=== PATIENT | male | born 1965 | race African-American/Black ===

== ENCOUNTER 2017-11-02 23:33 | Emergency (ER) | payer MEDICAID ==
[~2017-11-02] VITALS: Ht 175.3 cm; Wt 89.8 kg
[2017-11-02 23:45] VITALS: BP 150/90
[2017-11-02] MEDS ORDERED: QUEtiapine 200mg tab ORAL STA (23:49)
[2017-11-03] MEDS ORDERED: TraZODone 100mg tab ORAL ONE
[2017-11-03] MEDS ORDERED: TraZODone 50mg tab ONE (00:01)
[2017-11-03 00:55] LABS: APPEARANCE,URINE CLEAR; BILIRUBIN, URINE NEGATIVE (NEGATIVE); COLOR,URINE PALE YELLOW; GLUCOSE, URINE (UA) NEGATIVE (NEGATIVE); KETONES,URINE NEGATIVE (NEGATIVE); LEUKOCYTE ESTERASE ,URINE NEGATIVE (NEGATIVE); NITRITE,URINE NEGATIVE (NEGATIVE); PH,URINE 6.5 (4.5-8.0); PROTEIN,URINE NEGATIVE (NEGATIVE); UROBILINOGEN,URINE NORMAL MG/DL (0.0-1.0)
[2017-11-03 00:59] LABS: BASOPHILS % (AUTO) 0.9 % (0.0-2.0); EOSINOPHILS % (AUTO) 1.1 % (0.0-3.0); HEMATOCRIT 41.4 % (42.0-52.0); HEMOGLOBIN 13.5 G/DL (14.2-18.0); LYMPHOCYTES % (AUTO) 33.3 % (20.0-45.0); MEAN CORPUSCULAR VOLUME 89 FL (80-99); MONOCYTES % (AUTO) 10.9 % (1.0-10.0); NEUTROPHILS % (AUTO) 53.8 % (45.0-75.0); PLATELET COUNT 217 K/UL (150-450); RED BLOOD COUNT 4.68 M/UL (4.70-6.10); RED CELL DISTRIBUTION WIDTH 12.3 % (11.6-14.8); WHITE BLOOD COUNT 7.9 K/UL (4.8-10.8)
[2017-11-03 01:10] LABS: ANION GAP 7 mmol/L (5-15); BLOOD UREA NITROGEN 11 mg/dL (7-18); CALCIUM 8.6 MG/DL (8.5-10.1); CARBON DIOXIDE 28 MMOL/L (21-32); CHLORIDE 104 MMOL/L (98-107); CREATININE 0.8 MG/DL (0.55-1.30); POTASSIUM 3.9 MMOL/L (3.5-5.1); SODIUM 139 MMOL/L (136-145)
[2017-11-03 01:14] LABS: ALANINE AMINOTRANSFERASE 23 U/L (12-78); ALBUMIN 3.4 G/DL (3.4-5.0); ALKALINE PHOSPHATASE 80 U/L (46-116); ASPARTATE AMINO TRANSFERASE 11 U/L (15-37); BILIRUBIN,TOTAL 0.3 MG/DL (0.2-1.0)
--- NOTE | 2017-11-03 04:08 | Emergency Room Report ---
History of Present Illness General Chief Complaint: Behavioral Complaint Source: Patient, EMS Present Illness HPI Patient brought in by EMS saying that he is hearing voices and possibly feeling suicidal. He's not been taking his medications. He supposed be taking Seroquel and trazodone. He does not have a plan. He didn't tell EMS that he was suicidal. Long history of schizophrenia. The patient denies doing drugs or alcohol. No fever, chills, NVD, dysuria, joint pain, headache, rashes. Allergies: Coded Allergies: CHLORPROMAZINE (Verified Allergy, Unknown, 11/02/17) RISPERIDONE (Verified Allergy, Unknown, 11/02/17) Patient History Past Medical History: see triage record Social History: Reports: smoking; Denies: alcohol use, drug use Social History Narrative on streets Reviewed Nursing Documentation: PMH: Agreed; PSxH: Agreed Nursing Documentation-PMH History Of Psychiatric Problem: Yes - BIPOLAR,SCHIZOPHRENIA Review of Systems All Other Systems: negative except mentioned in HPI Physical Exam Vital Signs Date Time Temp Pulse Resp B/P (MAP) Pulse Ox O2 Delivery O2 Flow Rate FiO2 11/02/17 23:29 98.3 115 16 142/88 96 Room Air 98.2 Sp02 EP Interpretation: reviewed, normal General Appearance: well appearing, no apparent distress, GCS 15 Head: normocephalic, atraumatic Eyes: bilateral eye normal inspection, bilateral eye PERRL ENT: moist mucus membranes Neck: supple Respiratory: lungs clear, normal breath sounds Cardiovascular #1: regular rate, rhythm Cardiovascular #2: 2+ radial (R) Gastrointestinal: normal inspection, normal bowel sounds, non tender, no mass, non-distended Musculoskeletal: back normal, gait/station normal, normal range of motion Neurologic: alert, motor strength/tone normal, DTRs symmetric, sensory intact, speech normal, oriented - X2 Psychiatric: no suicidal/homicidal ideation, other - pressured and delusional Skin: normal inspection, warm/dry Medical Decision Making Diagnostic Impression: Primary Impression: Behavioral disorder Additional Impressions: Schizophrenia Qualified Codes: F20.9 - Schizophrenia, unspecified Non compliance w medication regimen ER Course Patient with history of schizophrenia presents with hearing voices and noncompliance. Differential includes exacerbation of schizophrenia, electrolyte imbalance, drug use and noncompliance amongst others. He'll be evaluated with EKG and labs. His lungs are clear and no imaging is indicated at the moment. He will be given doses of his antipsychotic medications and reevaluated. Labs are significant for negative tox screen and alcohol. The rest are unremarkable. The patient is sleeping calmly after getting his medication. He still states that he feels unstable and wants to be hospitalized. He's medically stable at this time however may benefit from psychiatric evaluation in the morning. Patient now no SI or HI and wants to go. States he will find a place to stay. Feels stable for discharge. Has outpatient psychiatric care. Laboratory Tests Test 11/02/17 00:30 White Blood Count 7.9 K/UL (4.8-10.8) Red Blood Count 4.68 M/UL (4.70-6.10) L Hemoglobin 13.5 G/DL (14.2-18.0) L Hematocrit 41.4 % (42.0-52.0) L Mean Corpuscular Volume 89 FL (80-99) Mean Corpuscular Hemoglobin 29.0 PG (27.0-31.0) Mean Corpuscular Hemoglobin Concent 32.7 G/DL (32.0-36.0) Red Cell Distribution Width 12.3 % (11.6-14.8) Platelet Count 217 K/UL (150-450) Mean Platelet Volume 6.6 FL (6.5-10.1) Neutrophils (%) (Auto) 53.8 % (45.0-75.0) Lymphocytes (%) (Auto) 33.3 % (20.0-45.0) Monocytes (%) (Auto) 10.9 % (1.0-10.0) H Eosinophils (%) (Auto) 1.1 % (0.0-3.0) Basophils (%) (Auto) 0.9 % (0.0-2.0) Urine Color Pale yellow Urine Appearance Clear Urine pH 6.5 (4.5-8.0) Urine Specific [place] 1.010 (1.005-1.035) Urine Protein Negative (NEGATIVE) Urine Glucose (UA) Negative (NEGATIVE) Urine Ketones Negative (NEGATIVE) Urine Blood Negative (NEGATIVE) Urine Nitrite Negative (NEGATIVE) Urine Bilirubin Negative (NEGATIVE) Urine Urobilinogen Normal MG/DL (0.0-1.0) Urine Leukocyte Esterase Negative (NEGATIVE) Sodium Level 139 MMOL/L (136-145) Potassium Level 3.9 MMOL/L (3.5-5.1) Chloride Level 104 MMOL/L (98-107) Carbon Dioxide Level 28 MMOL/L (21-32) Anion Gap 7 mmol/L (5-15) Blood Urea Nitrogen 11 mg/dL (7-18) Creatinine 0.8 MG/DL (0.55-1.30) Estimate Glomerular Filtration Rate > 60 mL/min (>60) Glucose Level 115 MG/DL (74-106) H Calcium Level 8.6 MG/DL (8.5-10.1) Total Bilirubin 0.3 MG/DL (0.2-1.0) Aspartate Amino Transferase (AST) 11 U/L (15-37) L Alanine Aminotransferase (ALT) 23 U/L (12-78) Alkaline Phosphatase 80 U/L (46-116) Troponin I 0.009 ng/mL (0.000-0.056) Total Protein 6.8 G/DL (6.4-8.2) Albumin 3.4 G/DL (3.4-5.0) Globulin 3.4 g/dL Albumin/Globulin Ratio 1.0 (1.0-2.7) Salicylates Level 2.5 ug/mL (2.8-20) L Urine Opiates Screen Negative (NEGATIVE) Acetaminophen Level < 2 MCG/ML (10-30) L Urine Barbiturates Screen Negative (NEGATIVE) Phencyclidine (PCP) Screen Negative (NEGATIVE) Urine Amphetamines Screen Negative (NEGATIVE) Urine Benzodiazepines Screen Negative (NEGATIVE) Urine Cocaine Screen Negative (NEGATIVE) Urine Marijuana (THC) Screen Negative (NEGATIVE) Serum Alcohol < 3 mg/dL EKG Diagnostic Results Rate: normal Rhythm: NSR ST Segments: no acute changes - LVH Rhythm Strip Diag. Results EP Interpretation: yes Rhythm: NSR, no PVC's, no ectopy Last Vital Signs Date Time Temp Pulse Resp B/P (MAP) Pulse Ox O2 Delivery O2 Flow Rate FiO2 11/03/17 09:44 98.1 90 15 138/78 99 Room Air 97.8 Status: improved Disposition: HOME, SELF-CARE Condition: Improved Scripts Trazodone Hcl* (DESYREL*) 100 Mg Tablet 100 MG ORAL BEDTIME, #20 TAB Prov: George Rosenthal M.D. 11/03/17 Quetiapine Fumarate* (SEROQUEL*) 200 Mg Tablet 200 MG ORAL HS, #20 TAB Prov: George Rosenthal M.D. 11/03/17 Referrals: NON PHYSICIAN (PCP) George Rosenthal M.D. Nov 03, 2017 04:08
[2017-11-03 06:00] VITALS: BP 141/85
[2017-11-03] MEDS ORDERED: TRAZODONE HCL100 MG ORAL (07:01)
[2017-11-03] MEDS ORDERED: SEROQUEL200 MG ORAL (07:01)
[2017-11-03 08:43] VITALS: BP 145/84
[2017-11-03 09:44] VITALS: BP 138/78
--- NOTE | 2017-11-04 14:24 | Cardiology Report ---
APPROVED REPORT EKG Measurement Heart [id number] Normal sinus rhythm Voltage criteria for left ventricular hypertrophy Nonspecific T wave abnormality Abnormal ECG
== END 2017-11-03 09:44 | disposition home or self-care (01) ==
LOC: EDBD 23:33 → EMR 23:56
DX: F20.9 Schizophrenia, unspecified (principal)
CPT/HCPCS: 36415; 80053; 80307; 80329; 81003; 84484; 85025; 93005; 96360; 99284